=== PATIENT | female | born 1990 | race American Indian/Alaskan Native ===

== ENCOUNTER 2019-03-20 09:33 | Emergency (ER) | payer OTHER ==
[2019-03-20 09:34] VITALS: BMI 31.2
[2019-03-20 10:35] LABS: BASO % 0.7 % (0.0-2.0); EOS # 0.1 K/uL (0.0-0.7); EOS % 2.5 % (0.0-4.0); HEMOGLOBIN 12.2 g/dL (11.0-16.0); LYMPH # 2.2 K/uL (1.0-4.3); LYMPH % 46.1 % (20.0-40.0); MEAN CELL VOLUME 89.3 fL (81.0-99.0); MEAN CORPUSCULAR HEMOGLOBIN 29.4 pg (27.0-31.0); MEAN CORPUSCULAR HGB CONC 32.9 g/dL (33.0-37.0); MEAN PLATELET VOLUME 7.9 fL (7.2-11.7); MONO # 0.3 K/uL (0.0-0.8); MONO % 5.7 % (0.0-10.0); NEUT # 2.2 K/uL (1.8-7.0); NRBC % 0.1 % (0.0-2.0); RBC 4.15 Mil/uL (3.80-5.20); RED CELL DISTRIBUTION WIDTH 13.2 % (11.5-14.5); WHITE BLOOD COUNT 4.8 K/uL (4.8-10.8)
[2019-03-20 10:50] LABS: ALB/GLOB RATIO 1.3 (1.0-2.1); ALBUMIN 4.1 g/dL (3.5-5.0); ALT/SGPT 11 U/L (9-52); AST/SGOT 18 U/L (14-36); BLOOD UREA NITROGEN 11 mg/dL (7-17); CALCIUM 9.2 mg/dl (8.6-10.4); GFR NON-AFRICAN AMERICAN > 60
[2019-03-20 12:09] VITALS: BP 109/76; PULSE 84; RESP 20; TEMP 98.2; O2SAT 100
--- NOTE | 2019-03-20 12:14 | C.PDOC ---
History Of Present Illness 28 y/o female, , presents to the emergency department for evaluation of RLQ pain and right breast tenderness that started last night. Patient describes the pain as sharp and rates it 8/10. She reports visiting OBGYN 3 days ago and was told she was 2 weeks . Patient has not started care. Notes that she began to feel breast tenderness last night and excreted white colored fluid. Last menstrual period was 02/27/19. Time Seen by Provider: 03/20/19 10:02 Chief Complaint (Nursing): Female Genitourinary History Per: Patient History/Exam Limitations: no limitations Onset/Duration Of Symptoms: Days Current Symptoms Are (Timing): Still Present Past Medical History Reviewed: Historical Data, Nursing Documentation, Vital Signs Vital Signs: Last Vital Signs Temp 98.2 F 03/20/19 11:51 Pulse 84 03/20/19 11:51 Resp 20 03/20/19 11:51 BP 109/76 03/20/19 11:51 Pulse Ox 100 03/20/19 11:51 Primary Care Provider: Clinic,[facility] - [facility] Procedures DELIVERY OF PRODUCTS OF CONCEPTION, EXTERNAL APPROACH (04/09/16) DIVISION OF FEMALE PERINEUM, EXTERNAL APPROACH (04/09/16) Family History: States: No Known Family Hx - Social History Hx Tobacco Use: No Hx Alcohol Use: Yes Hx Substance Use: No - Immunization History Hx Tetanus Toxoid Vaccination: No Hx Influenza Vaccination: No Hx Pneumococcal Vaccination: No Review Of Systems Except As Marked, All Systems Reviewed And Found Negative. Constitutional: Negative for: Fever, Chills Respiratory: Negative for: Shortness of Breath Gastrointestinal: Positive for: Abdominal Pain (RLQ). Negative for: Nausea, Vomiting, Diarrhea Musculoskeletal: Positive for: Other (Right breast tenderness with white discharge). Negative for: Neck Pain Physical Exam - Physical Exam Appears: Non-toxic, No Acute Distress Skin: Warm, Dry Head: Normacephalic Eye(s): bilateral: Normal Inspection Oral Mucosa: Moist Neck: Supple Chest: Tenderness (right breast tenderness to palpation, diffusely scant white fluid exreted from the nipple; no lumps, masses, or erythema noted) Cardiovascular: Rhythm Regular, No Murmur Respiratory: Normal Breath Sounds, No Rales, No Rhonchi, No Wheezing Gastrointestinal/Abdominal: Soft, Tenderness (RLQ tenderness to palpation), No Distention Extremity: Bilateral: Atraumatic, Normal ROM Neurological/Psych: Oriented x3, Normal Speech ED Course And Treatment - Laboratory Results Result Diagrams: 03/20/19 10:32 03/20/19 10:32 Lab Results: Total Bilirubin 0.4 mg/dL (0.2-1.3) 03/20/19 10:32 AST 18 U/L (14-36) 03/20/19 10:32 ALT 11 U/L (9-52) 03/20/19 10:32 Alkaline Phosphatase 51 U/L (38-126) 03/20/19 10:32 Total Protein 7.2 g/dL (6.3-8.3) 03/20/19 10:32 Albumin 4.1 g/dL (3.5-5.0) 03/20/19 10:32 Globulin 3.1 gm/dL (2.2-3.9) 03/20/19 10:32 Albumin/Globulin Ratio 1.3 (1.0-2.1) 03/20/19 10:32 Beta HCG, Quant < 2.39 mIU/ML 03/20/19 10:32 O2 Sat by Pulse Oximetry: 100 (RA) Pulse Ox Interpretation: Normal Disposition - Disposition Disposition: HOME/ ROUTINE Disposition Time: 12:20 Condition: STABLE Additional Instructions: Realize you are leaving prior to the completion of your evaluation. The Emergency Department physician recommends an abdominal cat scan to rule out significant pathology, including appendicitis. Realize that by leaving the ED prematurely you take the full responsibility for any adverse outcome. Return to your closest Emergency Department in the event the pain persists or you develop fever or any other concerns. Forms: [facility] (Polish), General Discharge Instructions - POA Present On Arrival: None - Clinical Impression Clinical Impression: Abdominal pain - Scribe Statement The provider has reviewed the documentation as recorded by the Christie Macario Provider Attestation: All medical record entries made by the Adelineibbecca were at my direction and p ersonally dictated by me. I have reviewed the chart and agree that the record accurately reflects my personal performance of the history, physical exam, medical decision making, and the department course for this patient. I have also personally directed, reviewed, and agree with the discharge instructions and disposition.
== END 2019-03-20 12:18 | disposition home or self-care (01) ==
LOC: C.ER 09:33
DX: O26.891 Other specified pregnancy related conditions, first trimester (principal); R10.31 Right lower quadrant pain; Z3A.01 Less than 8 weeks gestation of pregnancy